=== PATIENT | female | born 1930 | race Caucasian/White ===

== ENCOUNTER 2019-12-28 12:08 | Inpatient (IN) ==
[2019-12-28] MEDS ORDERED: 0.9 % SODIUM CHLORIDE 500 ML IV ONE (12:46)
--- NOTE | 2019-12-28 12:49 | Emergency Department Note ---
Fall HPI - General Chief Complaint: Fall Stated Complaint: Falls Time Seen by Provider: 12/28/19 12:37 Source: patient, family Mode of arrival: wheelchair - History of Present Illness HPI Narrative: According her . She has been falling multiple times in the last 2 weeks. The. Patient denies headache at this time. According her . She has been mentally slow the last few weeks as well. She does have a large hematoma in the back of her skull from 1 recent fall. - Related Data Home Medications Medication Instructions Recorded Confirmed calcium carbonate-vitamin D3 600 1 cap PO BID cap 05/27/15 12/10/19 mg calcium-200 unit capsule multivitamin 1 tab PO QDAY tab 05/27/15 12/10/19 losartan 100 mg tablet 100 mg PO QDAY tab 07/30/19 12/10/19 Previous Rx's Medication Instructions Recorded magnesium oxide 250 mg PO QDAY #30 tab 04/18/18 hydrochlorothiazide 25 mg tablet 25 mg PO QDAY #90 tab NS 10/29/18 solifenacin 5 mg tablet 10 mg PO QDAY #180 tab 11/01/18 clopidogrel 75 mg tablet 75 mg PO QDAY #90 tab 07/29/19 atorvastatin 40 mg tablet 40 mg PO QDAY #90 tab 08/08/19 albuterol sulfate 90 mcg/actuation 2 puff INHALATION Q6H PRN #8.5 g 09/18/19 aerosol inhaler trazodone 50 mg tablet 50 mg PO QHS #90 tab 11/11/19 escitalopram oxalate 5 mg tablet 5 mg PO QDAY #60 tab 12/10/19 Allergies Allergy/AdvReac Type Severity Reaction Status Date / Time House Dust Allergy Unknown Sneezing Verified 12/28/19 12:09 cats Allergy Unknown Sneezing Uncoded 12/10/19 09:35 smoke Allergy Unknown Sneezing Uncoded 12/10/19 09:35 weeds Allergy Unknown Sneezing Uncoded 12/10/19 09:35 Review of Systems Review of Systems: Patient denies chest pain, no recent history of nausea, vomiting, denies injuries to her extremities Limitations: ROS unobtainable due to patients medical condition Fall PMH - Past Medical History Medical history: Reports: arthritis, hyperlipidemia, hypertension, other (Ptosis left upper lid. Insomnia. Macular degeneration.). Denies: CHF, COPD, CVA, DM, myocardial infarction, thyroid disease Surgical history ED: Reports: orthopedic, other Psychiatric history: Reports: anxiety, depression - Social History smoking status: Former smoker Alcohol use: Reports: None Drug use: Reports: none. Denies: marijuana Physical Exam Limitations: no limitations General appearance: alert, in no apparent distress Head: other (2 cm hematoma to the occipital scalp on the right side) Eye: Present: normal appearance, nystagmus ENT: Present: normal exam, normal oropharynx, mucous membranes moist Neck: Present: normal inspection, full ROM. Absent: tenderness Chest: Present: normal inspection, symmetric chest wall rise. Absent: tenderness Respiratory: Present: normal lung sounds bilaterally. Absent: respiratory distress, rales/crackles, wheezes Cardiovascular: Present: regular rate, systolic murmur Abdominal: Present: soft. Absent: distention, tenderness Extremities: Present: normal inspection, full ROM, normal capillary refill. Absent: pedal edema, pretibial edema, cyanosis, clubbing Back: Absent: CVA tenderness (R), CVA tenderness (L), vertebral tenderness Neurological: Present: alert. Absent: motor sensory deficit Psychiatric: Present: flat affect Skin: Present: warm, dry, normal color Course - Reevaluation(s) Reevaluation #1: We gave her a small amount of IV fluids. Normal saline him. It turns out her sodium is 120. She is too unstable to go home. Head CT not showing any acute changes, significant amount of encephalomalacia. Discussed hospital admission jesi Breaux Vital Signs Temperature 97.2 F 12/28/19 12:09 Pulse Rate 80 12/28/19 12:09 Respiratory Rate 16 12/28/19 12:09 Blood Pressure 166/85 12/28/19 12:09 Pulse Oximetry (%) 96 12/28/19 12:09 Temperature 97.2 F 12/28/19 12:09 Pulse Rate 69 12/28/19 15:17 Respiratory Rate 14 12/28/19 15:40 Blood Pressure 149/91 12/28/19 15:40 Pulse Oximetry (%) 97 12/28/19 15:17 Fall - MDM Narrative Medical decision making narrative: Final diagnosis is recurrent falls, generalized weakness from hyponatremia - Lab Data Result diagrams: 12/28/19 12:58 12/28/19 12:58 Lab Results 03/05/1112/28/19 12/28/19 Range/Units 12:58 12:58 14:22 WBC 7.8 (4.50-11.00) K/mcL RBC 3.87 (3.59-5.38) M/mcL Hgb 11.6 (11.2-15.7) g/dL Hct 34.2 (34.1-44.9) % MCV 88.4 (80.0-100.0) fL MCH 30.0 (26.0-34.0) pg MCHC 33.9 (31.0-36.0) g/dL RDW 13.0 (11.5-14.5) % Plt Count 256 (140-440) K/mcL MPV 8.8 (7.4-10.4) fL Gran % 80.7 H (38.0-78.0) % Lymph % (Auto) 10.0 L (15.5-49.0) % [place] % (Auto) 8.1 (1.0-12.0) % Eos % (Auto) 0.8 (0.0-7.0) % Baso % (Auto) 0.4 (0.0-2.0) % Gran # 6.31 (1.80-8.00) K/mcL Lymph # (Auto) 0.78 L (1.50-4.80) K/mcL [place] # (Auto) 0.63 (0.10-0.90) K/mcL Eos # (Auto) 0.06 (0.00-0.70) K/mcL Baso # (Auto) 0.03 (0.00-0.30) K/mcL Sodium 120 L (133-145) mmol/L Potassium 3.4 (3.3-5.1) mmol/L Chloride 81 L (96-108) mmol/L Carbon Dioxide 26 (22-30) mmol/L Anion Gap 13.0 (8-16) BUN 14 (8-23) mg/dl Creatinine 0.7 (0.6-1.1) mg/dl GFR Calculation 77 Glucose 87 (70-105) mg/dL Calcium 9.5 (8.6-10.4) mg/dl Total Bilirubin 0.7 (0.0-1.0) mg/dL AST 23 (0-37) U/l ALT 15 (0-40) U/l Alkaline Phosphatase 131 H (39-117) U/L Total Protein 7.2 (5.9-8.4) gm/dL Albumin 4.3 (3.2-5.2) gm/dL Globulin 2.9 (2.2-3.7) gm/dL Albumin/Globulin Ratio 1.5 (1.0-2.3) Urine Color Straw Urine Appearance Clear Urine pH 7.0 (5.0-9.0) Ur Specific [place] 1.013 (1.000-1.035) Urine Protein Neg (NEG) mg/dL Urine Glucose (UA) Negative (NEG) mg/dL Urine Ketones 5/tr A (NEG) mg/dL Urine Occult Blood Neg (<0.03) mg/dL Urine Nitrate Neg (NEG) Urine Bilirubin Neg (NEG) mg/dL Urine Urobilinogen Neg (NEG) mg/dL Ur Leukocyte Esterase Neg (NEG) /uL Ur Culture Indicated? No Disposition Pt seen by ACCOUNTING PROFESSOR/PA only: No Clinical Impression: Hyponatremia Disposition: Xfer As Outpt/Obs ([facility]) Condition: Fair Referrals: Steve Peraza DO [Primary Care Provider] -
[2019-12-28 13:27] LABS: Basophils # (Auto) 0.03 K/mcL (0.00-0.30); Basophils % (Auto) 0.4 % (0.0-2.0); Eosinophils # (Auto) 0.06 K/mcL (0.00-0.70); Eosinophils % (Auto) 0.8 % (0.0-7.0); Granulocytes % (Auto) 80.7 % (38.0-78.0); Hematocrit 34.2 % (34.1-44.9); Hemoglobin 11.6 g/dL (11.2-15.7); Lymphocytes # (Auto) 0.78 K/mcL (1.50-4.80); Mean Cell Volume 88.4 fL (80.0-100.0); Mean Corpuscular HGB Conc 33.9 g/dL (31.0-36.0); Mean Platelet Volume 8.8 fL (7.4-10.4); Monocytes # (Auto) 0.63 K/mcL (0.10-0.90); Monocytes % (Auto) 8.1 % (1.0-12.0); Platelet Count 256 K/mcL (140-440); RBC 3.87 M/mcL (3.59-5.38); WBC 7.8 K/mcL (4.50-11.00)
[2019-12-28 14:08] LABS: ALT/SGPT 15 U/l (0-40); AST/SGOT 23 U/l (0-37); Albumin 4.3 gm/dL (3.2-5.2); Albumin/Globulin Ratio 1.5 (1.0-2.3); Alkaline Phosphatase 131 U/L (39-117); Bilirubin,Total 0.7 mg/dL (0.0-1.0); Blood Urea Nitrogen 14 mg/dl (8-23); Calcium 9.5 mg/dl (8.6-10.4); Carbon Dioxide 26 mmol/L (22-30); Globulin 2.9 gm/dL (2.2-3.7); Glomerular Filtration Rate 77; Glucose 87 mg/dL (70-105)
[2019-12-28 14:32] LABS: Chloride 81 mmol/L (96-108)
--- NOTE | 2019-12-28 14:48 | XRay Report ---
HISTORY: Fell FINDINGS: There is a large amount calcification of the costochondral cartilage bilaterally which creates the appearance of pulmonary fibrosis and infiltrates. This is a chronic finding. There is no evidence pulmonary contusion, pneumothorax, pleural effusion or abnormal widening of the mediastinum. There is a levoscoliotic curvature in the aorta is tortuous. The heart size is within upper limits of normal. An acute nondisplaced fracture is present laterally in the right ninth rib. This was not present on 12/11/19. There has been no other significant change from the prior exam. IMPRESSION: New fracture of the lateral right ninth rib Interpreted and Authenticated by: Cuco Ferrell 12/28/19
--- NOTE | 2019-12-28 14:52 | Cat Scan Report ---
History: Fell with head injury TECHNIQUE: The brain was imaged without contrast at 2.5 mm intervals. The radiation exposure was limited using dose reduction technology. FINDINGS: There are large dense calcifications in the basal ganglia and the dentate nuclei of the cerebellum bilaterally. These are chronic stable finding with no significant change since 03/20/2018 and 04/27/2018. Severe white matter disease is present throughout the frontal and parietal lobes bilaterally. There is an old small lacunar infarct lateral to the head of left caudate nucleus. This lacunar infarct is new since 2018 but is not acute. No acute infarct is detected. There is no acute hemorrhage or mass effect. Bone windows show no skull fracture. 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 This has remained stable. 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 Barry was called with the results Interpreted and Authenticated by: Cuco Ferrell 12/28/19
[2019-12-28] MEDS: amLODIPine 5 MG TABLET PO ONE ×2 (15:15→17:06)
[2019-12-28 15:17] LABS: Appearance,Urine CLEAR; Bilirubin,Urine NEG (NEG); Color,Urine STRAW; Culture Indicated,Urine NO; Glucose,Urine (UA) NEGATIVE (NEG); Ketones,Urine 5/TR mg/dL (NEG); Leukocyte Esterase,Urine NEG /uL (NEG); Nitrate,Urine NEG (NEG); Protein,Urine NEG (NEG); Specific Gravity,Urine 1.013 (1.000-1.035); Urine Blood NEG mg/dL (<0.03); Urobilinogen,Urine NEG (NEG)
[2019-12-28] MEDS ORDERED: amLODIPine 5 MG TABLET ONE (17:02)
[2019-12-28] MEDS ORDERED: HYDROmorphone 2 MG/ML VIAL IV PRN ×2 (18:29→19:32)
[2019-12-28] MEDS ORDERED: ONDANSETRON 4 MG/2 ML VIAL IV PRN ×2 (18:29→19:32)
[2019-12-28] MEDS ORDERED: ACETAMINOPHEN 325 MG TABLET PO PRN ×2 (18:29→19:32)
[2019-12-28] MEDS ORDERED: 0.9 % SODIUM CHLORIDE 1,000 ML IV SCH ×2 (18:30→19:32)
[2019-12-28] MEDS ORDERED: ALBUTEROL SULFATE 1 PUFF INHALER INH PRN ×2 (18:38→19:32)
[2019-12-28] MEDS ORDERED: hydrALAZINE 20 MG/ML VIAL IV PRN ×2 (18:41→19:32)
--- NOTE | 2019-12-28 18:51 | Internal Med History&Physical ---
Medical - H&P: HPI Patient information: Note initiated : 12/28/19 at 6:45 pm Service Date, if different from initiated Date: [] Patient: Viola Pope a 89 y/o F admitted on for Falls. Chief Complaint: [General weakness for 1 day] History of present illness: Ms. Pope is a 89 year old F with a history of a high blood pressure who was brought into the ER due to multiple recent falls and general weakness. Patient is sleepy and confused and really answers simple questions. Almost all information is obtained from medical chart. Patient recently had multiple mechanical falls. A hematoma was found in the back of her skull from recent fall. She has been feeling general weakness over the past 1-2 days. In the ER, she was found to have hyponatremia 120. Chest x-ray showed new fracture of the left lateral right ninth rib When I saw this patient in the ER, she was sleepy. Other than that symptoms mentioned above, she denied headache, dizziness, chest pain, shortness of breath, abdominal pain, fever, chills, dysuria, or changes in vision. - Constitutional Constitutional: Present: fatigue, frequent falls, weakness - EENT Eyes: Present: as per HPI Nose, mouth and throat: Present: as per HPI - Cardiovascular Cardiovascular: Present: as per HPI - Respiratory Respiratory: Present: as per HPI - Gastrointestinal Gastrointestinal: Present: as per HPI - Musculoskeletal Musculoskeletal: Present: as per HPI - Integumentary Integumentary: Present: as per HPI - Neurological Neurological: Present: as per HPI, confusion - Psychiatric Psychiatric: Present: as per HPI, confusion - Endocrine Endocrine: Present: as per HPI - Hematologic/Lymphatic Hematologic/Lymphatic: Present: as per HPI - Allergic/Immunologic Allergic/Immunologic: Present: as per HPI Medical - H&P: H Medical history: Hypertension Family history: reviewed and not pertinent Smoking status: Former smoker Drug use: none Alcohol use: none Medical - H&P: Meds Home Medications Medication Instructions Recorded Confirmed Type calcium carbonate-vitamin D3 600 1 cap PO BID cap 05/27/15 12/10/19 History mg calcium-200 unit capsule multivitamin 1 tab PO QDAY tab 05/27/15 12/10/19 History magnesium oxide 250 mg PO QDAY #30 tab 04/18/18 12/10/19 Rx hydrochlorothiazide 25 mg tablet 25 mg PO QDAY #90 tab NS 10/29/18 12/28/19 Rx solifenacin 5 mg tablet 10 mg PO QDAY #180 tab 11/01/18 12/28/19 Rx clopidogrel 75 mg tablet 75 mg PO QDAY #90 tab 07/29/19 12/10/19 Rx losartan 100 mg tablet 100 mg PO QDAY tab 07/30/19 12/10/19 History atorvastatin 40 mg tablet 40 mg PO QDAY #90 tab 08/08/19 12/10/19 Rx albuterol sulfate 90 mcg/actuation 2 puff INHALATION Q6H PRN #8.5 g 09/18/19 12/28/19 Rx aerosol inhaler trazodone 50 mg tablet 50 mg PO QHS #90 tab 11/11/19 12/28/19 Rx escitalopram oxalate 5 mg tablet 5 mg PO QDAY #60 tab 12/10/19 12/28/19 Rx Fluticasone Propionate [Flovent 50 mcg IH DAILY 12/28/19 12/28/19 History Diskus] Allergies Allergy/AdvReac Type Severity Reaction Status Date / Time House Dust Allergy Unknown Sneezing Verified 12/28/19 12:09 cats Allergy Unknown Sneezing Uncoded 12/10/19 09:35 smoke Allergy Unknown Sneezing Uncoded 12/10/19 09:35 weeds Allergy Unknown Sneezing Uncoded 12/10/19 09:35 Medical - H&P: Exam - Constitutional Vitals: Temp Pulse Resp BP Pulse Ox 97.2 F 72 16 159/135 97 12/28/19 12:09 12/28/19 18:01 12/28/19 18:41 12/28/19 18:41 12/28/19 18:01 General appearance: cooperative (Sleepy and confused) - Head Head exam: Present: atraumatic, normocephalic (a hematoma in the back of the school) - Expanded Head Exam Head exam: Present: hematoma - Eye Eye exam: Present: EOMI, PERRL - Neck Neck exam: Present: full ROM - Cardiovascular Cardiovascular exam: Present: normal rate and rhythm, systolic murmur - GI/Abdominal GI/Abdominal exam: Present: normal bowel sounds, soft - Extremities Exam Extremities exam: Present: normal inspection. Absent: tenderness, Prakash's sign - Neurological Exam Neurological exam: Present: CN II-XII intact (Confused, grossly no focal neurological deficit) - Psychiatric Psychiatric exam: Present: normal affect, normal mood Medical - H&P: Reslt - Labs CBC & Chem 7: 12/28/19 12:58 12/28/19 12:58 Labs: Short CBC 12/28/19 Range/Units 12:58 WBC 7.8 (4.50-11.00) K/mcL Hgb 11.6 (11.2-15.7) g/dL Hct 34.2 (34.1-44.9) % Plt Count 256 (140-440) K/mcL BMP 12/28/19 12:58 Sodium 120 L Potassium 3.4 Chloride 81 L Carbon Dioxide 26 BUN 14 Creatinine 0.7 Glucose 87 Calcium 9.5 Liver Function 12/28/19 Range/Units 12:58 Total Bilirubin 0.7 (0.0-1.0) mg/dL AST 23 (0-37) U/l ALT 15 (0-40) U/l Alkaline Phosphatase 131 H (39-117) U/L Albumin 4.3 (3.2-5.2) gm/dL Urine 12/28/19 Range/Units 14:22 Urine Color Straw Urine Appearance Clear Urine pH 7.0 (5.0-9.0) Ur Specific [place] 1.013 (1.000-1.035) Urine Protein Neg (NEG) mg/dL Urine Glucose (UA) Negative (NEG) mg/dL Medical - H&P: A/P - Narrative A/P Narrative: Assessment: 1. Multiple falls, mechanical 2. General weakness 3. Hematoma, back of skull from recent fall 4. HTN, uncontrolled 5. Hyponatremia 6. New fracture of the lateral right ninth rib Plan: 1. CT of the head negative for acute changes PT OT 2. General weakness could be due to hyponatremia or dehydration PTOT Corrected underlying problems 3. Monitor H/H 4. Sodium 120. NS 50ml/hr. BMP Q8hrs. Make sure Na level change < 8mEq/24hrs. 5. For fracture, pain management including IV dilaudid. Pulmonary toilet 6. DVT prophylaxis: Heparin 7. CODE STATUS: Full. Need to discuss with family
[2019-12-28] MEDS ORDERED: HEPARIN 5,000 UNIT/ML VIAL SQ SCH (21:00)
[2019-12-28] MEDS ORDERED: traZODone HCL 50 MG TABLET PO SCH ×2 (21:00)
[2019-12-28] MEDS ORDERED: DOCUSATE SODIUM 100 MG CAPSULE PO SCH (21:00)
[2019-12-28 21:14] LABS: Blood Urea Nitrogen 11 mg/dl (8-23); Carbon Dioxide 27 mmol/L (22-30); Chloride 79 mmol/L (96-108); Glomerular Filtration Rate 77; Glucose 76 mg/dL (70-105)
[2019-12-28] MEDS: HEPARIN 5,000 UNIT/ML VIAL SQ SCH (22:00)
[2019-12-28] MEDS ORDERED: 0.9 % SODIUM CHLORIDE 10 ML SYRINGE IV SCH (22:00)
[2019-12-28] MEDS: DOCUSATE SODIUM 100 MG CAPSULE PO SCH (22:00)
[2019-12-28] MEDS: 0.9 % SODIUM CHLORIDE 10 ML SYRINGE IV SCH (22:19)
[2019-12-29 06:15] LABS: Basophils # (Auto) 0.04 K/mcL (0.00-0.30); Basophils % (Auto) 0.6 % (0.0-2.0); Eosinophils # (Auto) 0.11 K/mcL (0.00-0.70); Eosinophils % (Auto) 1.8 % (0.0-7.0); Granulocytes % (Auto) 69.4 % (38.0-78.0); Hematocrit 34.9 % (34.1-44.9); Hemoglobin 12.1 g/dL (11.2-15.7); Lymphocytes # (Auto) 1.13 K/mcL (1.50-4.80); Mean Cell Volume 87.7 fL (80.0-100.0); Mean Corpuscular HGB Conc 34.7 g/dL (31.0-36.0); Mean Platelet Volume 9.2 fL (7.4-10.4); Monocytes # (Auto) 0.64 K/mcL (0.10-0.90); Monocytes % (Auto) 10.2 % (1.0-12.0); Platelet Count 267 K/mcL (140-440); RBC 3.98 M/mcL (3.59-5.38); Red Cell Distribution Width 13.2 % (11.5-14.5); WBC 6.3 K/mcL (4.50-11.00)
[2019-12-29 06:41] LABS: Thyroid Stimulating Hormone 1.59 uIU/ml (0.27-5.01); proBNP 421.8 pg/ml (0-450)
[2019-12-29 06:52] LABS: ALT/SGPT 15 U/l (0-40); AST/SGOT 22 U/l (0-37); Albumin 3.8 gm/dL (3.2-5.2); Albumin/Globulin Ratio 1.3 (1.0-2.3); Alkaline Phosphatase 130 U/L (39-117); Bilirubin,Total 0.9 mg/dL (0.0-1.0); Blood Urea Nitrogen 10 mg/dl (8-23); Calcium 9.2 mg/dl (8.6-10.4); Carbon Dioxide 26 mmol/L (22-30); Globulin 2.9 gm/dL (2.2-3.7); Glomerular Filtration Rate 81; Glucose 72 mg/dL (70-105)
[2019-12-29 07:00] LABS: Chloride 81 mmol/L (96-108)
[2019-12-29] MEDS: 0.9 % SODIUM CHLORIDE 10 ML SYRINGE IV SCH (07:28)
[2019-12-29] MEDS ORDERED: PANTOPRAZOLE 40 MG TABLET PO SCH ×2 (07:30)
[2019-12-29] MEDS ORDERED: ATORVASTATIN 40 MG TABLET PO SCH (09:00)
[2019-12-29] MEDS ORDERED: Solifenacin Succinate [Vesicare] 10 mg Tab PO SCH (09:00)
[2019-12-29] MEDS ORDERED: MULTIVIT,THER IRON,CA,FA & MIN 1 TABLET PO SCH (09:00)
[2019-12-29] MEDS ORDERED: CLOPIDOGREL 75 MG TABLET PO SCH (09:00)
[2019-12-29] MEDS ORDERED: ESCITALOPRAM 10 MG TABLET PO SCH ×2 (09:00)
[2019-12-29] MEDS ORDERED: FLUTICASONE PROPIONATE 50 MCG INH SCH ×2 (09:00)
[2019-12-29] MEDS ORDERED: CALCIUM W/VIT D3 500 MG TABLET PO SCH (09:00)
[2019-12-29] MEDS ORDERED: VITAMIN D3 1,000 UNIT TABLET PO SCH (09:00)
[2019-12-29] MEDS ORDERED: amLODIPine 5 MG TABLET PO SCH ×2 (09:00)
[2019-12-29] MEDS ORDERED: LOSARTAN 50 MG TABLET PO SCH ×2 (09:00)
[2019-12-29] MEDS: HEPARIN 5,000 UNIT/ML VIAL SQ SCH (10:13)
[2019-12-29] MEDS: DOCUSATE SODIUM 100 MG CAPSULE PO SCH (10:13)
[2019-12-29] MEDS: POTASSIUM CHLORIDE 20 MEQ/15 ML ML PO SCH ×2 (10:16→14:52)
--- NOTE | 2019-12-29 11:52 | Discharge Summary ---
Medical - DS: Prov Patient information: Note initiated : 12/29/19 at 11:49 am Service Date, if different from initiated Date: [] Patient: Viola Pope 89 y/o F admitted on 12/28/19 for Falls. Chief Complaint: [] Refer to H&P by Babak Lane M.D.> 12/28/19 Ms. Pope is a 89 year old F with a history of a high blood pressure who was brought into the ER due to multiple recent falls and general weakness. Patient is sleepy and confused and really answers simple questions. Almost all information is obtained from medical chart. Patient recently had multiple mechanical falls. A hematoma was found in the back of her skull from recent fall. She has been feeling general weakness over the past 1-2 days. In the ER, she was found to have hyponatremia 120. Chest x-ray showed new fracture of the left lateral right ninth rib When I saw this patient in the ER, she was sleepy. Other than that symptoms mentioned above, she denied headache, dizziness, chest pain, shortness of breath, abdominal pain, fever, chills, dysuria, or changes in vision. Date of admission: 12/28/19 19:27 Discharge date: 12/29/19 Primary care physician: Steve Peraza DO Consults: 12/28/19 Consult to Physician [CONS] Stat Comment: Consulting Provider: Babak Lane Reason For Exam: Physician to Consult Medical - DS: Meds - Discharge Medications Prescriptions: amLODIPine [Norvasc] 5 mg PO DAILY #30 tab Prescription Printed Active and Home Medications: Home Medications calcium carbonate-vitamin D3 600 mg calcium-200 unit capsule 1 cap PO BID cap 05/27/15 [History Confirmed 12/28/19 Last Taken Unknown] multivitamin 1 tab PO QDAY tab 05/27/15 [History Confirmed 12/28/19 Last Taken Unknown] magnesium oxide 250 mg PO QDAY #30 tab 04/18/18 [Rx Confirmed 12/28/19 Last Taken Unknown] hydrochlorothiazide 25 mg tablet 25 mg PO QDAY #90 tab NS 10/29/18 [Rx Confirmed 12/28/19 Last Taken Unknown] solifenacin 5 mg tablet 10 mg PO QDAY #180 tab 11/01/18 [Rx Confirmed 12/28/19 Last Taken Unknown] clopidogrel 75 mg tablet 75 mg PO QDAY #90 tab 07/29/19 [Rx Confirmed 12/10/19 Last Taken Unknown] losartan 100 mg tablet 25 mg PO QDAY tab 07/30/19 [History Confirmed 12/28/19 Last Taken Unknown] atorvastatin 40 mg tablet 40 mg PO QDAY #90 tab 08/08/19 [Rx Confirmed 12/28/19 Last Taken Unknown] albuterol sulfate 90 mcg/actuation aerosol inhaler 2 puff INHALATION Q6H PRN #8.5 g 09/18/19 [Rx Confirmed 12/28/19 Last Taken Unknown] trazodone 50 mg tablet 50 mg PO QHS #90 tab 11/11/19 [Rx Confirmed 12/28/19 Last Taken Unknown] escitalopram oxalate 5 mg tablet 5 mg PO QDAY #60 tab 12/10/19 [Rx Confirmed 12/28/19 Last Taken Unknown] Cholecalciferol (Vitamin D3) [Vitamin D3] 2,000 unit PO DAILY 12/28/19 [History Confirmed 12/28/19 Last Taken Unknown] Fluticasone Propionate [Flovent Diskus] 50 mcg IH DAILY 12/28/19 [History Confirmed 12/28/19 Last Taken Unknown] Medical - DS: Hosp Hospital Course: By problems: 1. Multiple falls, mechanical Patient was seen by physical therapist in the hospital. I will order outpatient physical therapy for her. CT of the head negative for acute changes 2. General weakness General weakness could be due to hyponatremia or dehydration Patient feels much better and stronger today 3. Hematoma, back of skull from recent fall Stable. Hemoglobin stable too. 4. HTN, uncontrolled Better controlled. Home medications include losartan and hydrochlorothiazide. Continue losartan. Amlodipine was added. Discontinued hydrochlorothiazide franca use of the reason mentioned below. 5. Hyponatremia Most likely caused by hydrochlorothiazide which was discontinued. In the ER, sodium level was a 120. Today's sodium level is 123. Fluid restriction. Repeat his sodium level within 3 days. 6. New fracture of the lateral right ninth rib Does not complain of much pain. Had respiratory versus just ran a few minutes ago so TECHNICALLY on the BiPAP is responding to the BiPAP I do not know you did a good numbers axis is okay I have any spelt on 1314 for standard tidal volume by going okay anxious and has notes chest pain well pain management. Pulmonary toilet. SpO2 > = 96% on RM. Today patient feels better. Vital signs are stable. Discussed with patient and refused facility placement and would like to go home. She will be disch arged home today to follow-up with PCP. I will order outpatient physical therapy for her. Call PCP medical issues. addendum: Home health was referred, which was arranged for her by [facility]. Discharge diagnosis: falls, hyponatremia - Time Spent with Patient Total time spent providing and/or coordinating discharge services: Greater than 30 minutes Medical - DS: Exam - Constitutional Vitals: Vital Signs Temp Pulse Pulse Resp BP BP Pulse Ox 12/29/19 10:29 82 14 12/29/19 08:00 97.9 F 64 14 109/61 97 12/29/19 04:00 97.2 F 63 16 158/69 96 12/29/19 00:40 97.0 F 65 16 149/63 97 12/28/19 20:00 98.1 F 72 20 149/89 94 12/28/19 19:10 16 12/28/19 19:08 19 12/28/19 19:01 16 167/80 12/28/19 18:41 16 159/135 12/28/19 18:31 16 159/135 12/28/19 18:01 72 18 170/101 97 12/28/19 17:31 19 177/82 12/28/19 17:11 72 13 174/84 98 12/28/19 17:01 66 14 174/84 97 12/28/19 16:31 67 24 H 180/94 98 12/28/19 16:09 66 26 H 171/79 96 12/28/19 15:40 14 149/91 12/28/19 15:31 26 H 149/91 12/28/19 15:17 69 17 142/73 97 12/28/19 15:12 70 18 154/77 96 12/28/19 15:01 69 15 154/77 98 12/28/19 14:31 75 18 191/103 87 L 12/28/19 14:16 78 19 195/85 99 12/28/19 14:01 74 160/83 99 12/28/19 13:46 73 21 179/84 99 12/28/19 13:39 72 16 172/87 97 12/28/19 13:33 72 14 172/87 99 12/28/19 12:09 97.2 F 80 16 166/85 96 Intake and Output 12/28/19 12/29/19 12/29/19 20:59 05:59 13:59 Intake Total Output Total Balance Intake: IV Sodium Chloride 0.9% 500 ml @ Wide Open IV .Q0M ONE Rx#: [id number] Output: Void Amount # of times incontinent of urine Other: Urine Appearance Urine Color Weight - Other Additional findings: General appearance: cooperative Head exam: atraumatic, normocephalic (a hematoma in the back of the school) Head exam: hematoma Eye exam: Present: EOMI, PERRL Neck exam: full ROM Cardiovascular exam: normal rate and rhythm, systolic murmur GI/Abdominal exam: normal bowel sounds, soft Extremities exam: normal inspection. Absent: tenderness, Prakash's sign Neurological exam: alert and awake, CN II-XII intact, grossly no focal neurological deficit Psychiatric exam:normal affect, normal mood Medical - DS: Data Labs on day of discharge: Labs from last 24 hours 12/29/19 12/29/19 12/28/19 05:00 05:00 20:12 WBC 6.3 RBC 3.98 Hgb 12.1 Hct 34.9 MCV 87.7 MCH 30.4 MCHC 34.7 RDW 13.2 Plt Count 267 MPV 9.2 Gran % 69.4 Lymph % (Auto) 18.0 [place] % (Auto) 10.2 Eos % (Auto) 1.8 Baso % (Auto) 0.6 Gran # 4.36 Lymph # (Auto) 1.13 L [place] # (Auto) 0.64 Eos # (Auto) 0.11 Baso # (Auto) 0.04 Sodium 123 L 118 L* Potassium 3.2 L 3.2 L Chloride 81 L 79 L Carbon Dioxide 26 27 Anion Gap 16.0 12.0 BUN 10 11 Creatinine 0.6 0.7 GFR Calculation 81 77 Glucose 72 76 Calcium 9.2 9.0 Total Bilirubin 0.9 AST 22 ALT 15 Alkaline Phosphatase 130 H NT-Pro-B Natriuret Pep 421.8 Total Protein 6.7 Albumin 3.8 Globulin 2.9 Albumin/Globulin Ratio 1.3 TSH 1.59 Urine Color Urine Appearance Urine pH Ur Specific [place] Urine Protein Urine Glucose (UA) Urine Ketones Urine Occult Blood Urine Nitrate Urine Bilirubin Urine Urobilinogen Ur Leukocyte Esterase Ur Culture Indicated? 12/28/19 12/28/19 12/28/19 14:22 12:58 12:58 WBC 7.8 RBC 3.87 Hgb 11.6 Hct 34.2 MCV 88.4 MCH 30.0 MCHC 33.9 RDW 13.0 Plt Count 256 MPV 8.8 Gran % 80.7 H Lymph % (Auto) 10.0 L [place] % (Auto) 8.1 Eos % (Auto) 0.8 Baso % (Auto) 0.4 Gran # 6.31 Lymph # (Auto) 0.78 L [place] # (Auto) 0.63 Eos # (Auto) 0.06 Baso # (Auto) 0.03 Sodium 120 L Potassium 3.4 Chloride 81 L Carbon Dioxide 26 Anion Gap 13.0 BUN 14 Creatinine 0.7 GFR Calculation 77 Glucose 87 Calcium 9.5 Total Bilirubin 0.7 AST 23 ALT 15 Alkaline Phosphatase 131 H NT-Pro-B Natriuret Pep Total Protein 7.2 Albumin 4.3 Globulin 2.9 Albumin/Globulin Ratio 1.5 TSH Urine Color Straw Urine Appearance Clear Urine pH 7.0 Ur Specific [place] 1.013 Urine Protein Neg Urine Glucose (UA) Negative Urine Ketones 5/tr A Urine Occult Blood Neg Urine Nitrate Neg Urine Bilirubin Neg Urine Urobilinogen Neg Ur Leukocyte Esterase Neg Ur Culture Indicated? No Medical - DS: A/P - Patient/Caregiver Discharge Instructions Activity: increase activity as tolerated Diet: Cardiac Additional Instructions: Stop taking the hydrochlorothiazide. This is the water pill you were taking in the morning. Please limit the amount of water you drink. You may have juices, tea, coffee or any other beverage of your choice. Please call Dr. Peraza and set up an appointment in the next 3-7 days. Please let him know you were in the hospital for low sodium. On Monday please come over to the lab and have you blood drawn so we can recheck your sodium level. Home Health for physical therapy has been ordered to work on balance and strength. Patient does not use a walker but one would be helpful to prevent further falls. If you have any questions night or day please call [facility] ICU at [phone]. Prescriptions: amLODIPine [Norvasc] 5 mg PO DAILY #30 tab Prescription Printed Other Amb Orders: Physical Therapy at Discharge - General Location: None Selected Walker Location: None Selected Comprehensive Metabolic Panel Time Frame: 2 Days, Location: None Selected - Follow up Plan Follow up with: Steve Peraza DO [Primary Care Provider] - (within 3 days. Her Na is 123 today. ) Disposition: Home, Self-Care Prognosis: Fair Rehab Potential: Good
[2019-12-29 14:05] LABS: Blood Urea Nitrogen 13 mg/dl (8-23); Calcium 9.1 mg/dl (8.6-10.4); Carbon Dioxide 27 mmol/L (22-30); Glomerular Filtration Rate 77; Glucose 164 mg/dL (70-105)
[2019-12-29 14:13] LABS: Chloride 83 mmol/L (96-108)
== END 2019-12-29 16:45 | disposition home or self-care (01) | DRG 641 ==
LOC: ED 12:08 → ICU 19:27
PROVIDERS: ADMIT Internal Medicine; ATTEND Internal Medicine